=== PATIENT | female | born 1950 | race Caucasian/White ===

== ENCOUNTER → 2021-03-15 | Outpatient (CLI) | payer MEDICARE, OTHER ==
[~2021-03-15] MED LIST: BERBERINE PO; BETAMETHASONE D30 ML TOP; CETIRIZINE HCL10 MG PO; COZAAR25 MG PO; ELIQUIS5 MG PO; HYDROCODON-ACE1 EAC4 PO; LANTUS SOL100 UNIT/1 SQ; NOVOLOG FL100 UNIT/1 SQ; SYMBICORT 160-1 INHA INH; SYNTHROID150 MCG PO
[2021-03-15 14:49] LABS: HEMOGLOBIN 12.6 gm/dl (12.3-15.3); RED BLOOD COUNT 4.47 M/UL (4.00-5.10); WHITE BLOOD COUNT 6.1 K/UL (4.5-11.0)
== END ==
LOC: OPSV2 03-10 10:00 → EDSTATUS 12:30 → OPSV2 13:29
PROVIDERS: Orthopaedic Surgery
DX: Z01.818 Encounter for other preprocedural examination (principal); M13.852 Other specified arthritis, left hip
CPT/HCPCS: 36415; 71046; 80048; 81001; 83036; 85025; 87081; 87086; 93005

== ENCOUNTER 2021-03-24 07:52 | Inpatient (IN) | payer MEDICARE, OTHER ==
[~2021-03-24] VITALS: Ht 170.2 cm; Wt 118.4 kg
[2021-03-25 03:21] LABS: HEMOGLOBIN 10.9 gm/dl (12.3-15.3); RED BLOOD COUNT 3.95 M/UL (4.00-5.10); WHITE BLOOD COUNT 9.9 K/UL (4.5-11.0)
[2021-03-26 05:59] LABS: HEMOGLOBIN 9.8 gm/dl (12.3-15.3); WHITE BLOOD COUNT 10.2 K/UL (4.5-11.0)
[2021-03-26 06:00] LABS: RED BLOOD COUNT 3.5 M/UL (4.00-5.10)
[2021-03-27 05:37] LABS: HEMOGLOBIN 9.1 gm/dl (12.3-15.3); RED BLOOD COUNT 3.42 M/UL (4.00-5.10); WHITE BLOOD COUNT 11.2 K/UL (4.5-11.0)
--- NOTE | 2021-03-27 15:17 | NUR ---
ATTEMPTED TO CONTACT PHYSICIAN MULTIPLE TIMES REGARDING CHANGES IN PAIN MEDICATION REQUESTED BY PATIENT WITH NO RESPONSE.
--- NOTE | 2021-03-28 09:25 | NUR ---
0741: BLOOD GLUCOSE NOTED AT 65; PATIENT REFUSED ORDERED TREATMENT; STATES "I WILL EAT BREAKFAST, IT WILL BE FINE". 0855: RECHECK OF BLOOD GLUCOSE NOTED AT 152; PATIENT AGREES TO TAKE LANTUS.
== END 2021-03-28 11:54 | disposition home health service (06) | DRG 470 ==
LOC: OR 07:52 → EDSTATUS 09:00 → M/S 15:16
PROVIDERS: ADMIT Orthopaedic Surgery
PROC: 0SRB03A Replacement of Left Hip Joint with Ceramic Synthetic Substitute, Uncemented, Open Approach (ICD-10-PCS; principal; 2021-03-24 10:45)
DX: M16.12 Unilateral primary osteoarthritis, left hip (principal); Z68.41 Body mass index [BMI] 40.0-44.9, adult; J44.9 Chronic obstructive pulmonary disease, unspecified; I12.9 Hypertensive chronic kidney disease with stage 1 through stage 4 chronic kidney disease, or unspecified chronic kidney disease; K21.9 Gastro-esophageal reflux disease without esophagitis; E66.01 Morbid (severe) obesity due to excess calories; N18.30 Chronic kidney disease, stage 3 unspecified; K46.9 Unspecified abdominal hernia without obstruction or gangrene; E78.5 Hyperlipidemia, unspecified; E11.22 Type 2 diabetes mellitus with diabetic chronic kidney disease; G89.29 Other chronic pain; E03.9 Hypothyroidism, unspecified; Z86.718 Personal history of other venous thrombosis and embolism; Z79.01 Long term (current) use of anticoagulants; Z86.711 Personal history of pulmonary embolism; Z79.1 Long term (current) use of non-steroidal anti-inflammatories (NSAID); Z85.528 Personal history of other malignant neoplasm of kidney; Z90.5 Acquired absence of kidney; Z83.3 Family history of diabetes mellitus; Z80.9 Family history of malignant neoplasm, unspecified; Z82.49 Family history of ischemic heart disease and other diseases of the circulatory system; Z90.49 Acquired absence of other specified parts of digestive tract; Z98.51 Tubal ligation status; Z91.040 Latex allergy status
CPT/HCPCS: 36415; 71045; 72170; 76000; 80048; 82962; 85025; 86850; 86900; 86901; 94760; 97110-GP-CQ; 97116-GP-CQ; 97161; 97166; 97530-GP-CQ; 97535; C1776; J0171; J0690; J1100; J2001; J2270; J2370; J2405; J2704; J2710; J2795; J3010; J3370; J7030; J7050; J7120; U0002